=== PATIENT | male | born 1955 | race African-American/Black ===

== ENCOUNTER 2017-02-10 19:37 | Emergency (ER) | payer OTHER ==
--- NOTE | ~2017-02-10 | EKG ---
PATIENT: NADJA LOZADA UNIT #: [id number] Ventricular Rate: 129 BPM Atrial Rate: 129 BPM P-R Interval: 120 ms QRS Duration: 78 ms Q-T Interval: 340 ms QTC Calculation(Bezet): 498 ms P [place]: 76 degrees Calculated R [place]: 51 degrees Calculated T [place]: 45 degrees Diagnosis Line: Sinus tachycardia Diagnosis Line: Biatrial enlargement Diagnosis Line: Abnormal ECG Diagnosis Line: When compared with ECG of 16-FEB-2016 11:52, Diagnosis Line: Vent. rate has increased BY 60 BPM Diagnosis Line: Confirmed by MARY SHARMA MD ([id number]) on 02/13/2017 Diagnosis Line: 7:23:26 AM INTERPRETING MD: EDITH WATTS
--- NOTE | ~2017-02-10 | CR63 ---
[facility] A Service of [facility] RADIOLOGY TEXT RESULTS PATIENT: NADJA LOZADA LOCATION: [facility] : 51 UNIT #: [id number] AGE: [address]: Reece Crain MD SEX: M ORDER DR: [id number] [place], [place] [address] [id number] MR#: [id number] Acc #: [id number] NAME: NADJA LOZADA : 1955 SEX: M STUDY DATE/TIME: 02/10/2017 18:56 UNIT: [facility] ROOM: STUDY DESCRIPTION: CR Chest 2 View Attending Physician: Reece Crain M.D. Ordering Physician: Reece Crain M.D. Primary Care Physician: Primary Care Physician No MEDICAL IMAGING REPORT This report is preliminary unless electronic signature is present EXAM Chest 2 views INDICATION Shortness of air. Chest congestion for the past 3 days. PROCEDURE Frontal and lateral views of the chest. COMPARISON 02/16/2016. FINDINGS Heart size is stable. Persistent, high-density opacity in the left lung base, with associated volume loss. No new dense opacity, pleural fluid or pneumothorax. IMPRESSION 1. No active process. 2. Stable calcified pleural-based plaque in the left lung base with volume loss. Dictated by... Luis Fernando Murphy M.D. THIS IS AN ELECTRONICALLY VERIFIED REPORT Luis Fernando Murphy M.D. at 02/13/2017 7:22 AM EELori/gerard TD: 02/11/2017 13:49 JOB #: [id number] [facility] A Service of [facility] RADIOLOGY TEXT RESULTS PATIENT: NADJA LOZADA LOCATION: [place] : 51 UNIT #: [id number] AGE: [address]: Reece Crain MD SEX: M ORDER DR: MEDICAL IMAGING REPORT COPY
[~2017-02-10 19:37] MED LIST: ALBUTEROL17 GM INH; AMLODIPINE BESY10 MG PO; FLEXERIL10 M1 PO; FLEXERIL10 MG PO; FOLIC ACID PO; GABAPENTIN400 MG PO; HYDROCHLOROTHIA25 MG PO; HYDROCODON-ACE1 EAC5 PO; HYDROCODONE/APA1 T16 PO; KEFLEX500 MG PO; METOPROLOL SUCC50 MG PO; PREDNISONE10 MG/DOSE PO; PRINIVIL10 MG PO; PULMICORT0.25 MG/2 INH; THIAMINE HCL100 MG PO; VIAGRA; VOLTAREN50 MG PO
[2017-02-10 20:20] LABS: BASOPHIL# 0.1 X10e3 (0-0.3); BASOPHIL% 0.5 % (0-2.5); DIFF IND NO; EOSINOPHIL% 0.1 % (0.0-7.0); HEMATOCRIT 37.5 % (38.0-50.0); HEMOGLOBIN 12.1 gm/dL (13.0-16.0); LYMPHOCYTE# 1.7 X10e3 (1.0-3.5); LYMPHOCYTE% 14.1 % (17.0-45.0); MEAN CELL VOLUME 81.9 FL (83-96); MEAN CORPUSCULAR HEMOGLOBIN 26.5 PG (28-34); MEAN CORPUSCULAR HGB CONC 32.4 g/dL (30-36); MEAN PLATELET VOLUME 8.9 FL (6.5-11.5); MONOCYTE% 8.8 % (3.0-12.0); NEUTROPHIL# 9.1 X10e3 (1.5-7.1); NEUTROPHIL% 76.5 % (40-75); PLATELET COUNT 351 X10e3 (140-420); RED BLOOD COUNT 4.57 X10e (3.90-5.60); RED CELL DISTRIBUTION WIDTH 13.8 % (11.0-15.5); WHITE BLOOD COUNT 11.9 X10e3 (4.0-10.5)
[2017-02-10 20:25] LABS: POC - CKMB 2.8 ng/mL (0.0-7.9); POC - TROPONIN <0.05 ng/mL (<=0.05)
[2017-02-10 20:29] LABS: PARTIAL THROMBOPLASTIN TIME 25.2 SECONDS (23.5-31.3); PROTHROMBIN TIME (PATIENT) 10.9 SECONDS (9.6-11.5)
[2017-02-10 20:44] LABS: ALBUMIN SERUM 4.5 g/dL (3.5-5.0); ALCOHOL BLOOD <5 mg/dL (0); ALKALINE PHOSPHATASE 134 U/L (32-92); ALT (SGPT) 288 U/L (10-40); AST (SGOT) 332 U/L (10-42); BILIRUBIN, DIRECT 0.3 mg/dL (0.0-0.2); BILIRUBIN,TOTAL 1.3 mg/dL (0.2-2.0); BLOOD UREA NITROGEN 57 mg/dL (9-23); CALCIUM SERUM 9.4 mg/dL (8.4-10.2); CARBON DIOXIDE 26 mmol/L (22-31); CHLORIDE 97 mmol/L (100-111); CPK (CREATINE PHOSPHOKINASE) 123 IU/L (36-174); CREATININE SERUM 1.2 mg/dL (0.6-1.4); GLOM FILT RATE Estimated ABOVE60 mL/min (>60); GLUCOSE FASTING 105 mg/dL (70-110); POTASSIUM 3.1 mmol/L (3.5-5.1); PROTEIN TOTAL SERUM 7.7 g/dL (6.0-8.3); SODIUM 137 mmol/L (135-145)
[2017-02-10 22:15] LABS: AMPHETAMINE NEG (NEG); BARBITURATES NEG (NEG); BENZODIAZEPINES NEG (NEG); COCAINE NEG (NEG); MARIJUANA POS (NEG); OPIATES POS (NEG); TRICYCLIC ANTIDEPRESSANTS POS (NEG); U METHADONE NEG (NEG)
[2017-02-10 22:57] LABS: POC - CKMB 1.5 ng/mL (0.0-7.9); POC - TROPONIN <0.05 ng/mL (<=0.05)
== END 2017-02-10 23:30 | disposition home or self-care (01) ==
LOC: CED 19:37
PROVIDERS: Emergency Medicine
DX: R07.89 Other chest pain (principal); R11.10 Vomiting, unspecified; R74.8 Abnormal levels of other serum enzymes; I10 Essential (primary) hypertension; F17.200 Nicotine dependence, unspecified, uncomplicated
CPT/HCPCS: 36415; 71020; 80048; 80076; 80307; 82550; 82553; 83880; 84484; 85025; 85379; 85610; 85730; 93005; 96360; 99284; G0480